=== PATIENT | female | born 1940 | race Two or more races ===

== ENCOUNTER 2023-08-04 22:08 | Emergency (ER) | payer OTHER ==
[~2023-08-04] VITALS: Ht 147.3 cm; Wt 44.5 kg
[2023-08-04 23:55] VITALS: BP 177/87; PULSE 79; RESP 16; TEMP 98.8
[2023-08-05] MEDS: HYDROCODONE/ACETAMINOPHEN 5-325 MG TABLET PO ONE (00:03)
[2023-08-05] MEDS: KETOROLAC TROMETHAMINE 30 MG/ML VIAL IVP ONE (02:48)
== END 2023-08-05 03:50 | disposition short-term general hospital (02) ==
LOC: EMS 22:08
DX: S72.002A Fracture of unspecified part of neck of left femur, initial encounter for closed fracture (principal); E07.9 Disorder of thyroid, unspecified; Z88.0 Allergy status to penicillin; Z88.8 Allergy status to other drugs, medicaments and biological substances; W19.XXXA Unspecified fall, initial encounter; Y93.89 Activity, other specified; Y92.89 Other specified places as the place of occurrence of the external cause; Y99.8 Other external cause status
CPT/HCPCS: 99285; 73503; 96374; J1885